=== PATIENT | female | born 1980 | race Caucasian/White ===

== ENCOUNTER → 2017-11-21 | Day surgery (SDC) | payer OTHER ==
[~2017-11-21] MED LIST: BCP; BENTYL10 MG/1 ML PO; COLESTIPOL HCL1 GM PO; FENTANYL CITRATE/PF 100MCG/2 ML INJ ONE; HYOSCYAMINE SULFATE 0.5 MG/ML AMP ONE; LIDOCAINE HCL 2% LOCAL INJ 5 ML SDV VIAL INJ ONE; METOPROLOL SUCC25 MG PO; MIDAZOLAM HCL 2 MG/2 ML VIAL ONE; PANTOPRAZOLE SO40 MG PO; PROPOFOL IV EMULSION 10 MG/ML 50 ML VIAL ONE; ZANTAC300 M1 PO; [UNRECOGNIZED DRUG - OTHER] VG
[2017-11-21 11:10] VITALS: BP 127/91
--- NOTE | 2017-11-21 12:40 | Operative Report ---
DATE OF PROCEDURE: November 21, 2017 REFERRING PHYSICIAN: Dr. Demi Graham. PROCEDURES PERFORMED 1. Esophagogastroduodenoscopy with biopsies. 2. Colonoscopy with polypectomy and biopsies. INDICATIONS FOR EGD: Bloating, nausea, and heartburn. INDICATION FOR COLONOSCOPY: Diarrhea. MEDICATION: Patient was done under MAC. Please see anesthesiologist's note. PROCEDURE: With the patient in left lateral decubitus position, a flexible fiberoptic Olympus gastroscope was introduced into the esophagus under direct visualization without any difficulty. There was a patchy erythema noted in distal esophagus. The scope was then advanced with ease into the stomach. Mucosa overlying the antrum and the body revealed some patchy erythema and low-grade to moderate edema, and biopsies were obtained and sent to stain for H. pylori. Some hyperplastic-appearing polyps were noted in the body of the stomach and some were partially excised with the cold biopsy forceps. The pylorus was of normal contour and shape. It was intubated with ease, and scope was advanced all the way to the second portion of the duodenum. Biopsies were obtained from the proximal second portion to check if the patient's celiac disease in remission or not, which might reflect her compliance with the diet or if it is refractory. Mucosa overlying the duodenal bulb appeared to be within normal limits. The scope was then withdrawn back into the stomach and retroflexed and mucosa overlying the fundus and the cardia appeared to be within normal limits. The scope was then straightened out and was subsequently withdrawn. Patient tolerated the procedure well. IMPRESSION 1. Distal esophagitis, mild. 2. Gastritis, biopsied. Biopsy sent to stain for Helicobacter pylori. 3. Gastric polyps, body, hyperplastic-appearing, some partially excised with the cold biopsy forceps. PLAN: Follow up histology. Increase Protonix to 40 mg 1 p.o. a.c. b.i.d. If biopsies from the second portion of the duodenum still reflect changes compatible with celiac disease, then we will stress the patient need to meticulously follow a gluten-free diet. Patient was then turned around. After adequate lubrication of the anal canal, a flexible fiberoptic Olympus colonoscope was inserted into the rectum with ease and advanced all the way to the cecum. Mucosa overlying the cecum appeared to be within normal limits. The ileocecal valve was intubated, and biopsies were obtained from the terminal ileum. The scope was then withdrawn back into the colon. It was withdrawn slowly. Mucosa overlying the ascending and the transverse appeared to be within normal limits. A minute hyperplastic-appearing polyp was noted in the proximal descending colon and that was hot biopsied. There were some patchy mild inflammatory changes noted in the left colon. Multiple random biopsies were obtained. The scope was then retroflexed into the distal rectum and small internal hemorrhoids were noted, none of which was actively bleeding. The scope was then straightened out. It was subsequently withdrawn after securing an adequate stool specimen that was sent for the appropriate stool studies. Patient tolerated the procedure well. IMPRESSION 1. Descending colon polyp, hot biopsied. 2. Mild patchy left-sided colitis. 3. Internal hemorrhoids, small, none actively bleeding. PLAN: Follow up histology. Follow up stool studies. Initiate VSL#3 one p.o. daily and Bentyl 10 mg 1 p.o. t.i.d. Patient might benefit from a followup colonoscopy in 5 to 10 years. Job#: [id number] LPA cc:DEMI GRAHAM MD
[2017-11-21 14:42] LABS: WBC,FECAL (FECAL LACTOFERRIN) NEGATIVE (NEGATIVE)
[2017-11-21 14:43] LABS: C DIFFICILE TOXIN A&B AMP PROB NEGATIVE (NEGATIVE)
== END | disposition home or self-care (01) ==
LOC: OR 07:17
PROVIDERS: ATTEND Internal Medicine Gastroenterology
DX: K51.50 Left sided colitis without complications (principal); K63.5 Polyp of colon; K31.7 Polyp of stomach and duodenum; K29.70 Gastritis, unspecified, without bleeding; K20.9 Esophagitis, unspecified; K25.9 Gastric ulcer, unspecified as acute or chronic, without hemorrhage or perforation; K21.9 Gastro-esophageal reflux disease without esophagitis; K64.8 Other hemorrhoids; I10 Essential (primary) hypertension; K90.0 Celiac disease; Z90.49 Acquired absence of other specified parts of digestive tract; Z80.0 Family history of malignant neoplasm of digestive organs
CPT/HCPCS: 43239; 45380; 45384; 81025; 83630; 83993; 87045; 87177; 87328; 87493; J1980; J2001; J2250; 45378